=== PATIENT | female | born 1975 | race Caucasian/White ===

== ENCOUNTER 2025-01-17 16:19 | Emergency (ER) | payer SELFPAY ==
[~2025-01-17] VITALS: Ht 157.5 cm; Wt 82.0 kg
[2025-01-17 16:24] VITALS: O2SAT 99
[2025-01-17 16:36] VITALS: TEMP 36.7; O2SAT 100
[2025-01-17 17:31] VITALS: BP 138/75; PULSE 77; RESP 18
[2025-01-17] MEDS: HYDROCODONE/ACETAMINOPHEN 5/325MG TABLET PO ONE (17:31)
[2025-01-17] MEDS ORDERED: IBUP-2029 MT (19:23)
[2025-01-17] MEDS ORDERED: HYDR-4001 MT (19:23)
== END 2025-01-17 19:48 | disposition home or self-care (01) ==
LOC: ER 16:19
DX: S52.502A Unspecified fracture of the lower end of left radius, initial encounter for closed fracture (principal); W19.XXXA Unspecified fall, initial encounter; Y93.89 Activity, other specified; Y92.89 Other specified places as the place of occurrence of the external cause; Y99.8 Other external cause status
CPT/HCPCS: 29125; 73110; 73130; 99284; A4565